=== PATIENT | female | born 1950 | race Caucasian/White ===

== ENCOUNTER 2016-10-06 10:18 | Day surgery (SDC) | payer OTHER ==
[~2016-10-06 10:18] MED LIST: ALDACTONE25 MG PO; AMLODIPINE BESY10 MG PO; ASPIRIN81 M1 PO; BUPROPION HCL300 MG PO; COQ-10400 MG PO; CRESTOR40 MG PO; ESCITALOPRAM OX10 MG PO; LISINOPRIL10 MG PO; METFORMIN HCL500 MG PO; PLAVIX75 MG PO; VITAMIN D-31000 UNIT PO
--- NOTE | 2016-10-06 13:11 | Provider's Discharge Care Plan ---
Problem, Goal, Plan Problem List 1. S/P colonoscopy Goals: Screening Instructions: Follow up as directed, Take meds as directed
--- NOTE | 2016-10-06 13:11 | Provider's Discharge Care Plan ---
Problem, Goal, Plan Problem List 1. S/P colonoscopy Goals: Screening Instructions: Follow up as directed, Take meds as directed
--- NOTE | 2016-10-06 20:39 | OPERATIVE REPORT ---
DATE OF SURGERY: 10/06/2016 SURGEON: Aishwarya Whaley III, MD ASSOCIATE ACCOUNT MANAGER: None. PREOPERATIVE DIAGNOSIS: 1. Screening colonoscopy POSTOPERATIVE DIAGNOSES: 1. Sigmoid diverticulosis 2. Poor preparation PROCEDURE PERFORMED: 1. Colonoscopy ANESTHESIA: TIVA. INDICATIONS: The patient is a 66-year-old female referred for screening colonoscopy by Dr. Marsh's office. She is asymptomatic. SURGICAL FINDINGS: The patient had a very poor prep, with formed stool in the colon, but was also noted to have extensive sigmoid diverticulosis. SURGICAL TECHNIQUE: The patient was brought to the operating room and placed in the left lateral decubitus position, where she was administered TIVA and monitored closely by anesthesia. After proper anesthesia had taken effect, a digital rectal examination revealed no masses or stenosis. This was followed by the passage of a fiberoptic video flexible Olympus colonoscope which immediately encountered formed stool in the rectum. In spite of efforts of irrigation, we were only able to get to the proximal transverse colon. The patient had extensive diverticulosis. Rather than risk injury, because of the poor prep and our port rare visualization, the exam was terminated. The scope was withdrawn. The patient tolerated the procedure well and was transferred to the recovery room in stable condition.
--- NOTE | 2016-10-06 20:39 | OPERATIVE REPORT ---
DATE OF SURGERY: 10/06/2016 SURGEON: Aishwarya Whaley III, MD NEWS GATHERING TECHNICIAN: None. PREOPERATIVE DIAGNOSIS: 1. Screening colonoscopy POSTOPERATIVE DIAGNOSES: 1. Sigmoid diverticulosis 2. Poor preparation PROCEDURE PERFORMED: 1. Colonoscopy ANESTHESIA: TIVA. INDICATIONS: The patient is a 66-year-old female referred for screening colonoscopy by Dr. Marsh's office. She is asymptomatic. SURGICAL FINDINGS: The patient had a very poor prep, with formed stool in the colon, but was also noted to have extensive sigmoid diverticulosis. SURGICAL TECHNIQUE: The patient was brought to the operating room and placed in the left lateral decubitus position, where she was administered TIVA and monitored closely by anesthesia. After proper anesthesia had taken effect, a digital rectal examination revealed no masses or stenosis. This was followed by the passage of a fiberoptic video flexible Olympus colonoscope which immediately encountered formed stool in the rectum. In spite of efforts of irrigation, we were only able to get to the proximal transverse colon. The patient had extensive diverticulosis. Rather than risk injury, because of the poor prep and our port rare visualization, the exam was terminated. The scope was withdrawn. The patient tolerated the procedure well and was transferred to the recovery room in stable condition.
[2016-10-29] MEDS ORDERED: PRAMIPEXOLE0.125 MG PO (11:51)
== END 2016-10-06 15:04 | disposition home or self-care (01) ==
LOC: OR SRH 10:18 → SCU SRH 10:19
PROVIDERS: Specialist
PROC: 0DJD8ZZ Inspection of Lower Intestinal Tract, Via Natural or Artificial Opening Endoscopic (ICD-10-PCS; principal; 2016-10-06 11:30)
DX: Z12.11 Encounter for screening for malignant neoplasm of colon (principal); K57.30 Diverticulosis of large intestine without perforation or abscess without bleeding; E11.9 Type 2 diabetes mellitus without complications; Z79.84 Long term (current) use of oral hypoglycemic drugs
CPT/HCPCS: 29229; 29240; 50004; 60001; 70002; 83526

== ENCOUNTER 2016-11-03 06:12 | Day surgery (SDC) | payer OTHER ==
[~2016-11-03] VITALS: Ht 157.5 cm; Wt 85.8 kg
[~2016-11-03 06:12] MED LIST changes: +PRAMIPEXOLE0.125 MG PO
--- NOTE | 2016-11-03 07:58 | Provider's Discharge Care Plan ---
Problem, Goal, Plan Problem List 1. S/P colonoscopy Goals: Screening Instructions: Follow up as needed, Take meds as directed, high fiber diet
--- NOTE | 2016-11-03 07:58 | Provider's Discharge Care Plan ---
Problem, Goal, Plan Problem List 1. S/P colonoscopy Goals: Screening Instructions: Follow up as needed, Take meds as directed, high fiber diet
--- NOTE | 2016-11-03 08:37 | OPERATIVE REPORT ---
DATE OF SURGERY: 11/03/2016 SURGEON: Aishwarya Whaley III, MD HIGH SPEED PRINTER OPERATOR: None. PREOPERATIVE DIAGNOSIS: 1. Screening colonoscopy POSTOPERATIVE DIAGNOSIS: 1. Sigmoid diverticulosis PROCEDURE PERFORMED: 1. Colonoscopy ANESTHESIA: TIVA. INDICATIONS: A 66-year-old female, whose last colonoscopy was approximately 12 years ago, has a diagnosis of irritable bowel. Denies any bright red blood per rectum. The patient had attempted colonoscopy a couple weeks ago, unsuccessful secondary to poor prep. She is now being scheduled. SURGICAL FINDINGS: Normal-appearing cecum, ascending, transverse, and descending colon. The patient was noted to have sigmoid diverticulosis. Rectal vault appeared grossly normal. SURGICAL TECHNIQUE: The patient was brought to the operating room, placed in the left lateral decubitus position, where he was administered TIVA and monitored closely by anesthesia. After proper anesthesia had taken effect, a digital rectal examination revealed no masses or stenosis. This was then followed by the passage of a fiberoptic video flexible Olympus colonoscope which, without difficulty, negotiated to the cecum. The cecum was identified by anatomical landmarks and anterior abdominal wall ballottement. On withdrawing the scope, the aforementioned findings were noted. The scope was withdrawn, retroflexed, good view of the rectal vault obtained. No other pathology identified. The scope was completely withdrawn. The patient tolerated the procedure well and was transferred to the recovery room in stable condition. There were no intraoperative or anesthetic complications.
[2016-11-03 09:21] VITALS: BP 141/73
== END 2016-11-03 09:35 | disposition home or self-care (01) ==
LOC: SDC SRH 06:12 → SCU SRH 06:13 → OR SRH 07:30 → SDC SRH 07:30
PROVIDERS: Specialist
PROC: 0DJD8ZZ Inspection of Lower Intestinal Tract, Via Natural or Artificial Opening Endoscopic (ICD-10-PCS; principal; 2016-11-03 07:30)
DX: Z12.11 Encounter for screening for malignant neoplasm of colon (principal); K57.30 Diverticulosis of large intestine without perforation or abscess without bleeding; E11.9 Type 2 diabetes mellitus without complications; Z79.84 Long term (current) use of oral hypoglycemic drugs
CPT/HCPCS: 29229; 29240; 50004; 60001; 83526